=== PATIENT | female | born 1935 | race Caucasian/White ===

== ENCOUNTER 2017-09-01 13:47 | Outpatient (CLI) | payer MEDICARE, OTHER | END 2017-09-01 13:48 | disposition home or self-care (01) | LOC: BICRAD 13:47 | PROVIDERS: ATTEND Internal Medicine Gastroenterology | DX: R63.4 Abnormal weight loss (principal); R14.0 Abdominal distension (gaseous); R19.8 Other specified symptoms and signs involving the digestive system and abdomen | CPT/HCPCS: 74019 ==

== ENCOUNTER 2019-06-25 10:15 | Outpatient (CLI) | payer MEDICARE ==
[~2019-06-25 10:15] MED LIST: Iopamidol 370 76% 100 ML VIAL ONE
[2019-06-25 10:56] LABS: Estimated GFR-MDRD - POC Greater than 90
--- NOTE | 2019-06-25 12:58 | CT ---
CT ABDOMEN AND PELVIS PERFORMED WITH AND WITHOUT CONTRAST ENHANCEMENT: Date: 06/25/2019 HISTORY: Left lower quadrant pain. COMPARISON: Noncontrast CT examination of 01/06/2015. FINDINGS: The lung bases show chronic appearing change. There is a moderate hiatal hernia present. The liver, spleen, and pancreas, as well as gallbladder regions appear unremarkable. Right and left adrenal glands, and right and left kidneys are normal in size. No obstruction. There i s no significant periaortic or mesenteric adenopathy. A left common iliac vein stent is present. Ther e is severe diverticulosis of the sigmoid colon. I do not appreciate any definitive acute inflammator y change associated with these findings. Review of osseous structures show vertebroplasty changes at T12. 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 IMPRESSION: 1. Marked diverticulosis of the very distal descending and sigmoid colon. 2. Moderate hiatal hernia. POS: [facility]
== END 2019-06-25 10:16 | disposition home or self-care (01) ==
LOC: BICCT 10:15
PROVIDERS: ATTEND Internal Medicine Gastroenterology
DX: R10.32 Left lower quadrant pain (principal); K57.30 Diverticulosis of large intestine without perforation or abscess without bleeding; K44.9 Diaphragmatic hernia without obstruction or gangrene
CPT/HCPCS: 74178; 82565; Q9967